=== PATIENT | female | born 1960 | race Caucasian/White ===

== ENCOUNTER 2017-09-08 12:35 | Emergency (ER) | payer OTHER ==
[2017-09-08 13:41] VITALS: BP 149/83
--- NOTE | 2017-09-08 15:46 | UC ---
Knee Pain HPI - HPI Summary HPI Summary: 1. right ear pain 2. right medial calf pain---no injury with distal swelling has been going on for 5-6 days no injury - History of Current Complaint Chief Complaint: UCLowerExtremity Stated Complaint: RIGHT KNEE PAIN Time Seen by Provider: 09/08/17 15:35 Hx Obtained From: Patient ?: No Onset/Duration: Gradual Onset, Lasting Days - 6, Still Present Pain Intensity: 5 Pain Scale Used: 0-10 Numeric Character: Aching Aggravating Factor(s): Nothing Alleviating Factor(s): Nothing Associated Signs And Symptoms: Positive: Swelling Able to Bear Weight: Yes - Allergies/Home Medications Allergies/Adverse Reactions: Allergies Allergy/AdvReac Type Severity Reaction Status Date / Time acetaminophen [From Vicodin] Allergy Vomiting Verified 09/08/17 13:36 aspirin Allergy Vomiting Verified 09/08/17 13:36 bupropion [From Wellbutrin] Allergy Hives Verified 09/08/17 13:36 ciprofloxacin Allergy Hives Verified 09/08/17 13:36 hydrocodone [From Vicodin] Allergy Vomiting Verified 09/08/17 13:36 prochlorperazine Allergy Hives Verified 09/08/17 13:36 [From Compazine] Home Medications: Home Medications Diclofenac Sodium EC TAB* [Voltaren EC TAB*] 50 mg PO BID 09/08/17 [History Confirmed 09/08/17] Diltiazem TAB* [Cardizem 30 MG Tab*] 30 mg PO DAILY 09/08/17 [History Confirmed 09/08/17] Furosemide TAB* [Lasix TAB*] 20 mg PO DAILY 09/08/17 [History Confirmed 09/08/17 ] Loratadine [Claritin 10 MG CAP] 10 mg PO DAILY 09/08/17 [History Confirmed 09/08] Metoprolol Tartrate TAB* [Lopressor TAB*] 50 mg PO DAILY 09/08/17 [History Confirmed 09/08/17] Pantoprazole TAB (NF) [Protonix TAB (NF)] 20 mg PO DAILY 09/08/17 [History Confirmed 09/08/17] Simvastatin TAB(NF) [Zocor 20 MG (NF)] 20 mg PO 1700 09/08/17 [History Confirmed 09/08/17] PMH/Surg Hx/FS Hx/Imm Hx Previously Healthy: No Endocrine History: Dyslipidemia Cardiovascular History: Hypertension GI/ History: Gastroesophageal Reflux - Surgical History Surgical History: Yes Surgery Procedure, Year, and Place: mensicus repair 2017. x 2. right elbow. gallbladder, appy - Family History Known Family History: Positive: None - Social History Occupation: Unemployed Lives: With Family Alcohol Use: Rare Substance Use Type: None Smoking Status (MU): Heavy Every Day Tobacco Smoker Type: Cigarettes Amount Used/How Often: 1/2 ppd Review of Systems Constitutional: Negative Skin: Negative Eyes: Negative ENT: Ear Ache - right ear itching Respiratory: Negative Cardiovascular: Negative Gastrointestinal: Negative Genitourinary: Negative Motor: Negative Neurovascular: Negative Musculoskeletal: Negative, Myalgia - right medial calf pain with distal swelling Neurological: Negative Psychological: Negative Is Patient Immunocompromised?: No All Other Systems Reviewed And Are Negative: Yes Physical Exam Triage Information Reviewed: Yes Appearance: Well-Appearing, Pain Distress, Obese Vital Signs: Initial Vital Signs Temp 98.2 F 09/08/17 13:32 Pulse 78 09/08/17 13:32 Resp 19 09/08/17 13:32 BP 149/83 09/08/17 13:32 Pulse Ox 98 09/08/17 13:32 Vital Signs Reviewed: Yes Eye Exam: Normal Eyes: Positive: Conjunctiva Clear ENT Exam: Normal ENT: Positive: Normal ENT inspection, Hearing grossly normal, Pharynx normal, TMs normal, Uvula midline, Other - right canal red and irratated. Negative: Nasal congestion, Nasal drainage, Trismus, Muffled voice, Hoarse voice, Dental tenderness, Sinus tenderness Dental Exam: Normal Neck exam: Normal Neck: Positive: Supple, Nontender, No Lymphadenopathy Respiratory Exam: Normal Respiratory: Positive: Chest non-tender, Lungs clear, Normal breath sounds, No respiratory distress Cardiovascular Exam: Normal Cardiovascular: Positive: RRR, No Murmur, Pulses Normal, Brisk Capillary Refill Musculoskeletal Exam: Normal Musculoskeletal: Positive: Strength Intact, ROM Intact, Edema @ - medial lower calf and foot Neurological Exam: Normal Neurological: Positive: Alert, Muscle Tone Normal Psychological Exam: Normal Skin Exam: Normal Knee Pain Course/Dx - Course Course Of Treatment: corticosporin ear drops for right ear---d/c and reccommend follow up, by private car to go to, [facility] for further evaluation of right lower leg - Differential Dx/Diagnosis Provider Diagnoses: RLL Swelling, Right otitis externa - Physician Notifications Time Discussed With Above Provider: 15:53 - jocelyn escudero Discharge - Sign-Out/Discharge Documenting (check all that apply): Discharge/Admit/Transfer - Discharge Plan Condition: Stable Disposition: HOME Discharge Disposition Comment: to [facility] for further evaluation Prescriptions: Neomyc/Polym/HC 1% OTIC SUSP* [Cortisporin Otic Susp 1%*] 4 drop RIGHT EAR QID # 1 btl Patient Education Materials: Otitis Externa (ED), How to Use Ear Drops (ED) Referrals: Malika SUN,Jessica Mcnamara [Primary Care Provider] - Additional Instructions: You are being discharged from the urgent care to go to [facility] for evaluation of right medial calf pain - Billing Disposition and Condition Condition: STABLE Disposition: Home
[2017-09-08] MEDS ORDERED: traMADol TAB* 50 MG PO ONE (15:48)
== END 2017-09-08 16:05 | disposition home or self-care (01) ==
LOC: UCCORT 12:35
DX: H60.91 Unspecified otitis externa, right ear (principal); M79.89 Other specified soft tissue disorders; M79.661 Pain in right lower leg; I10 Essential (primary) hypertension; K21.9 Gastro-esophageal reflux disease without esophagitis; E78.5 Hyperlipidemia, unspecified; F17.210 Nicotine dependence, cigarettes, uncomplicated; Z88.6 Allergy status to analgesic agent; Z88.8 Allergy status to other drugs, medicaments and biological substances; Z88.1 Allergy status to other antibiotic agents; Z88.5 Allergy status to narcotic agent; Z79.899 Other long term (current) drug therapy
CPT/HCPCS: 99212; A9270-GY; G0463

== ENCOUNTER 2018-11-02 09:23 | Emergency (ER) | payer OTHER ==
[2018-11-02 09:38] VITALS: BP 124/67
--- NOTE | 2018-11-02 10:15 | UC ---
Lower Extremity/Ankle HPI - HPI Summary HPI Summary: 58-year-old female presents complaining of right foot pain. States that one week ago she accidentally kicked a stool. Has been having pain at the base of her 3rd, 4th, and 5th toes. States pain was improving however she accidentally hit her foot again today and the pain is worse. She has been able to walk and bear weight. Denies any numbness or tingling. - History of Current Complaint Chief Complaint: UCLowerExtremity Stated Complaint: RT FOOT INJURY Time Seen by Provider: 11/02/18 09:37 Hx Obtained From: Patient Pain Intensity: 7 - Allergies/Home Medications Allergies/Adverse Reactions: Allergies Allergy/AdvReac Type Severity Reaction Status Date / Time aspirin Allergy Vomiting Verified 11/02/18 09:32 bupropion [From Wellbutrin] Allergy Hives Verified 11/02/18 09:32 ciprofloxacin Allergy Hives Verified 11/02/18 09:32 hydrocodone [From Vicodin] Allergy Vomiting Verified 11/02/18 09:32 prochlorperazine Allergy Hives Verified 11/02/18 09:32 [From Compazine] Home Medications: Home Medications Albuterol HFA INHALER* [Ventolin HFA Inhaler*] 1 - 2 puff INH Q4H PRN 11/02/18 [ History Confirmed 11/02/18] Atorvastatin* [Lipitor*] 80 mg PO DAILY 11/02/18 [History Confirmed 11/02/18] Ergocalciferol (Vitamin D2) [Vitamin D2] 50,000 unit PO WE 11/02/18 [History Confirmed 11/02/18] Famotidine TAB 40 MG(NF) [Pepcid TAB 40 MG(NF)] 40 mg PO BID 11/02/18 [History Confirmed 11/02/18] Fluticasone-Salmeterol 100-50* [Advair Diskus 100-50*] 1 puff INH BID 11/02/18 [ History Confirmed 11/02/18] Gabapentin CAP(*) [Neurontin 100 mg CAP(*)] 200 mg PO BID 11/02/18 [History Confirmed 11/02/18] Hydrochlorothiazide TAB* [Hydrodiuril TAB*] 25 mg PO DAILY 11/02/18 [History Confirmed 11/02/18] LoraTADine TAB(NF) [Claritin 10 MG TAB(NF)] 10 mg PO DAILY 11/02/18 [History Confirmed 11/02/18] Metoprolol Succinate XL TAB* [Toprol XL TAB*] 100 mg PO DAILY 11/02/18 [History Confirmed 11/02/18] Pantoprazole TAB * [Protonix TAB*] 40 mg PO DAILY 11/02/18 [History Confirmed ] Spironolactone TAB* [Aldactone TAB*] 25 mg PO DAILY 11/02/18 [History Confirmed 11/02/18] Tizanidine HCl [Zanaflex] 4 mg PO TID PRN 11/02/18 [History Confirmed 11/02/18] amLODIPine TAB* [Norvasc 5 mg TAB*] 10 mg PO DAILY 11/02/18 [History Confirmed 11/02/18] oxyCODONE/Acetamin 5/325 MG* [Percocet 5/325 TAB*] 1 - 2 tab PO Q6H PRN MDD 6 [History Confirmed 11/02/18] PMH/Surg Hx/FS Hx/Imm Hx Endocrine History: Dyslipidemia Cardiovascular History: Hypertension Respiratory History: COPD GI/ History: Gastroesophageal Reflux - Surgical History Surgical History: Yes Surgery Procedure, Year, and Place: mensicus repair 2017. x 2. right elbow. gallbladder, appy - Family History Known Family History: Positive: Non-Contributory - Social History Occupation: Disabled Lives: With Family Alcohol Use: Rare Substance Use Type: Marijuana Substance Use Comment - Amount & Last Used: Daily Smoking Status (MU): Former Smoker Type: Cigarettes Amount Used/How Often: 1/2 ppd Length of Time of Smoking/Using Tobacco: 1/2 PPD On and Off for 43 Years Review of Systems All Other Systems Reviewed And Are Negative: Yes Constitutional: Negative: Fever, Chills Skin: Positive: Bruising Respiratory: Positive: Negative Cardiovascular: Positive: Negative Gastrointestinal: Positive: Negative Genitourinary: Positive: Negative Motor: Negative: Weakness Neurovascular: Negative: Decreased Sensation Musculoskeletal: Positive: Other: - See HPI Neurological: Positive: Negative Is Patient Immunocompromised?: No Physical Exam - Summary Physical Exam Summary: GENERAL APPEARANCE: Well developed, well nourished, alert and cooperative, and appears to be in no acute distress. CARDIAC: Normal S1 and S2. No S3, S4 or murmurs. Rhythm is regular. There is no peripheral edema, cyanosis or pallor. Extremities are warm and well perfused. Capillary refill is less than 2 seconds. Peripheral pulses intact. LUNGS: Clear to auscultation without rales, rhonchi, wheezing or diminished breath sounds. ABDOMEN: Positive bowel sounds. Soft, nondistended, nontender. No guarding or rebound. No masses or hepatosplenomegally. MUSKULOSKELETAL: ROM intact to all extremities. No joint erythema or tenderness. Normal muscular development. Normal gait. EXTREMITIES: Tenderness at the base of the 3rd, 4th, and 5th toes of the right foot without gross deformity, ecchymosis, or edema. Circulation and sensation intact. SKIN: Skin normal color, texture and turgor. Triage Information Reviewed: Yes Vital Signs: Initial Vital Signs Temp 98 F 11/02/18 09:28 Pulse 76 11/02/18 09:28 Resp 18 11/02/18 09:28 BP 124/67 11/02/18 09:28 Pulse Ox 98 11/02/18 09:28 Vital Signs Reviewed: Yes Diagnostics - Radiology No standard instances Radiology Interpretation Completed By: ED Physician - No acute fracture or dislocation., Radiologist Summary of Radiographic Findings: Order Information: FOOT RIGHT 3+ VWS. Accession Number: [id number]. CPT: 71198. INDICATION: Right foot injury. TECHNIQUE: 3 views of the right foot were obtained. FINDINGS: There is no soft tissue swelling about the toes. The bone mineralization is within normal limits. No fractures identified. A plantar calcaneal enthesophyte is present. Anatomic alignment is maintained. The joint spaces are preserved with mild osteoarthropathy of the first MTP. IMPRESSION: 1. NO EVIDENCE FOR FRACTURE. 2. MILD FIRST MTP OSTEOARTHROPATHY. Lower Extremity Course/Dx - Course Course Of Treatment: 58-year-old female presents complaining of right foot pain. States that one week ago she accidentally kicked a stool. Has been having pain at the base of her 3rd, 4th, and 5th toes. States pain was improving however she accidentally hit her foot again today and the pain is worse. She has been able to walk and bear weight. Denies any numbness or tingling. Afebrile. Vital signs stable. Patient some tenderness at the base of the third, fourth, and fifth toes of her right foot without gross deformity, ecchymosis, or edema. Circulation and sensation were intact. Remainder of exam was unremarkable. X-ray showed no acute fracture or dislocation. Patient was placed in a postop shoe. Recommending conservative treatment for a right foot contusion. She is to follow-up with her primary care provider in 5-7 days if symptoms are not improving. Anticipatory guidance and warning symptoms are reviewed with the patient. Verbalizes understanding and agrees with plan of care. - Differential Dx/Diagnosis Differential Diagnosis/HQI/PQRI: Contusion, Fracture (Closed), Sprain Provider Diagnosis: Contusion of right foot Discharge - Sign-Out/Discharge Documenting (check all that apply): Patient Departure All imaging exams completed and their final reports reviewed: Yes - Discharge Plan Condition: Stable Disposition: HOME Patient Education Materials: Foot Contusion (ED) Referrals: Jessica Daly PA [Primary Care Provider] - 5 Days Additional Instructions: The x-ray performed in the clinic today showed no evidence of a fracture. I suspect that you have a contusion of the foot. Wear the post-op shoe that was provided in the clinic until you are pain-free. Rest the foot as much as possible. You may continue to walk and bear weight as tolerated. Apply ice to the affected area for 15-20 minutes at least 4 times a day to help with the pain and swelling. Elevate the foot to help reduce swelling. Take acetaminophen (Tylenol) or ibuprofen (Advil, Motrin) according to directions as needed for pain. Follow up with your primary care provider in 5-7 days if symptoms do not improve. Seek immediate medical attention if you have severe pain not managed with pain medication, you are unable to walk or bear any weight, develop numbness or tingling in the foot or toes, or have any worsening of symptoms. - Billing Disposition and Condition Condition: STABLE Disposition: Home
== END 2018-11-02 10:50 | disposition home or self-care (01) ==
LOC: UCCORT 09:23
DX: I10 Essential (primary) hypertension (principal); E78.5 Hyperlipidemia, unspecified; K21.9 Gastro-esophageal reflux disease without esophagitis; J44.9 Chronic obstructive pulmonary disease, unspecified; Z87.891 Personal history of nicotine dependence
CPT/HCPCS: 99212; G0463

== ENCOUNTER 2019-02-17 08:50 | Emergency (ER) | payer OTHER ==
[2019-02-17 09:15] VITALS: BP 128/67
--- NOTE | 2019-02-17 10:22 | UC ---
Lower Extremity/Ankle HPI - HPI Summary HPI Summary: Pt presents c/o right distal foot pain that is worse at night. Pt states that she "stubbed her foot" recently and now she escamilla s pain with weight bearing. - History of Current Complaint Chief Complaint: UCLowerExtremity Stated Complaint: RIGHT FOOT INJURY Time Seen by Provider: 02/17/19 10:14 Hx Obtained From: Patient ?: No Onset/Duration: Sudden Onset, Lasting Days, Still Present Severity Initially: Moderate Severity Currently: Moderate Pain Intensity: 7 Aggravating Factor(s): Standing, Ambulation Alleviating Factor(s): Rest, Elevation Able to Bear Weight: Yes - minimal - Risk Factors Gout Risk Factors: Negative DVT Risk Factors: Recent Trauma - hit foot against hard object - Allergies/Home Medications Allergies/Adverse Reactions: Allergies Allergy/AdvReac Type Severity Reaction Status Date / Time aspirin Allergy Vomiting Verified 02/17/19 09:09 bupropion [From Wellbutrin] Allergy Hives Verified 02/17/19 09:09 ciprofloxacin Allergy Hives Verified 02/17/19 09:09 hydrocodone [From Vicodin] Allergy Vomiting Verified 02/17/19 09:09 prochlorperazine Allergy Hives Verified 02/17/19 09:09 [From Compazine] PMH/Surg Hx/FS Hx/Imm Hx Previously Healthy: Yes - Surgical History Surgical History: Yes Surgery Procedure, Year, and Place: mensicus repair 2017. x 2. right elbow. gallbladder, appy - Family History Known Family History: Positive: None, Non-Contributory - Social History Occupation: Employed Full-time Lives: With Family Alcohol Use: Rare Substance Use Type: Marijuana Substance Use Comment - Amount & Last Used: Daily Smoking Status (MU): Former Smoker Type: Cigarettes Amount Used/How Often: 1/2 ppd Length of Time of Smoking/Using Tobacco: 1/2 PPD On and Off for 43 Years Have You Smoked in the Last Year: No When Did the Patient Quit Smoking/Using Tobacco: 14 months ago - Immunization History Vaccination Up to Date: No Review of Systems All Other Systems Reviewed And Are Negative: Yes Constitutional: Positive: Negative Skin: Positive: Negative Eyes: Positive: Negative ENT: Positive: Negative Respiratory: Positive: Negative Cardiovascular: Positive: Negative Gastrointestinal: Positive: Negative Genitourinary: Positive: Negative Motor: Positive: Negative Neurovascular: Positive: Negative Musculoskeletal: Positive: Arthralgia, Myalgia Neurological: Positive: Negative Psychological: Positive: Negative Is Patient Immunocompromised?: No Physical Exam Triage Information Reviewed: Yes Appearance: Obese Vital Signs: Initial Vital Signs Temp 98.1 F 02/17/19 09:11 Pulse 81 02/17/19 09:11 Resp 17 02/17/19 09:11 BP 128/67 02/17/19 09:11 Pulse Ox 97 02/17/19 09:11 Vital Signs Reviewed: Yes Eye Exam: Normal ENT Exam: Normal ENT: Positive: Hearing grossly normal Dental Exam: Normal Neck exam: Normal Respiratory: Positive: No respiratory distress Musculoskeletal: Positive: Other: - c/o pain distal metatarsals Neurological Exam: Normal Psychological Exam: Normal Skin Exam: Normal Diagnostics - Radiology No standard instances Radiology Interpretation Completed By: Radiologist - Learning Developer: Slava Stinson ([id number]) Medical Geneticist: ADALGISA (NUANCE) Report Date: 2018 10:04:00 Report Status: Final ======= Start of Report Content Patient Name: RAMBO JUAREZ Medical Record#: [id number] Ordering Physician: Matthias Bryant MD Acct.#: [id number] : 1960 Age: 58 Sex : F Location: [facility] Exam Date: 02/17/19940 ADM Status: REG ER Order Information: FOOT RIGHT 3+ VWS Accession Number: [id number] CPT: 11128 INDICATION: Right foot trauma resulting in medial pain. COMPARISON: November 02, 2018 right foot radiograph TECHNIQUE: 3 views of the right foot were obtained. FINDINGS: The soft tissues are unremarkable. The bones are osteopenic. No fracture is identified. A small calcaneal enthesophyte extends along the plantar fascia. Anatomic alignment is maintained. There is moderate osteoarthropathy of the first MTP. IMPRESSION: 1. NO FRACTURE OR TRAUMATIC MALALIGNMENT OF THE RIGHT FOOT. 2. OSTEOPENIA. 3. MODERATE FIRST MTP OSTEOARTHROPATHY. < Electronically signed by Slava Stinson MD in OV> 02/17/19 1001 Dictated By: Slava Stinson MD Dictated Date/Time: 02/17/19957 Transcribed Date/Time: 957 Copy to: CC:[facility]; Jessica Daly RPA-C; Matthias Bryant MD Imaging - [facility] Imaging - [facility] [address] [place] [id number] [address] [address] ph [phone]) ph [phone]) ph ([phone]) End of Report Content Lower Extremity Course/Dx - Differential Dx/Diagnosis Differential Diagnosis/HQI/PQRI: Fracture (Closed), Sprain, Strain, Tendonitis Provider Diagnosis: Right foot pain Discharge ED - Sign-Out/Discharge Documenting (check all that apply): Patient Departure All imaging exams completed and their final reports reviewed: Yes - Discharge Plan Condition: Stable Disposition: HOME Patient Education Materials: Arthralgia (ED), Ice Pack Application (ED), Safe Use of NSAIDs (ED), Metatarsalgia (DC) Referrals: Jessica Daly, PA [Primary Care Provider] - If Needed Bob Rousseau MD [Medical Doctor] - If Needed - Billing Disposition and Condition Condition: STABLE Disposition: Home
== END 2019-02-17 10:44 | disposition home or self-care (01) ==
LOC: UCCORT 08:50
DX: M79.671 Pain in right foot (principal); Z87.891 Personal history of nicotine dependence; Z88.6 Allergy status to analgesic agent; Z88.8 Allergy status to other drugs, medicaments and biological substances; Z88.5 Allergy status to narcotic agent; Z88.1 Allergy status to other antibiotic agents
CPT/HCPCS: 99213; G0463

== ENCOUNTER 2020-10-07 10:36 | Observation (INO) ==
[~2020-10-07 10:36] MED LIST: Buffered Lidocaine 1% SYRIN 1 ml INTRADERM ONE; Lactated Ringers 1000 ml BAG 1,000 ML IV SCH
[2020-10-07] MEDS ORDERED: Chlorhexidine MOUTHWASH 0.12% 15 ML UDC ONE (10:52)
[2020-10-07] MEDS ORDERED: Heparin 5000 UNITS/ML 1 mL VIAL ONE (10:52)
[2020-10-07] MEDS ORDERED: Bupivacaine 0.5% SDV PF 30ML VIAL ONE (10:52)
[2020-10-07] MEDS ORDERED: ceFAZolin 2 GM PREMIX 2 GM/50 ML BAG ONE (10:56)
[2020-10-07] MEDS ORDERED: Ondansetron ODT 4 mg TAB 4 MG TAB ONE (10:56)
[2020-10-07] MEDS ORDERED: Midazolam 2 mg/2 ml VIAL 1 mg/ml 2 ml VIAL (2 mg) ONE (11:01)
[2020-10-07] MEDS ORDERED: fentaNYL 250 mcg/5 ml 50 MCG/ML 5 ml VIAL (250 MCG) ONE (11:01)
[2020-10-07] MEDS ORDERED: Rocuronium 50 mg VIAL 10 mg/ml 5 ml VIAL (50 mg) ONE (11:07)
[2020-10-07 11:39] LABS: Calcium 9.9 mg/dL (8.6-10.3); EGFR African American 55.1 (>60); EGFR Non-African American 45.5 (>60); Potassium 3.1 mmol/L (3.5-5.0)
[2020-10-07] MEDS ORDERED: Phenylephrine 40 mcg/mL 10mL (400mcg) SYRINGE ONE (12:01)
[2020-10-07] MEDS ORDERED: Ketamine HCL 50 mg/ml 10 ml VIAL (500 MG) ONE (12:02)
[2020-10-07] MEDS ORDERED: EPHEDrine (Pressors) 50 MG/ML VIAL ONE (13:09)
[2020-10-07] MEDS ORDERED: ceFAZolin VIAL VIAL ONE ×2 (15:24→17:19)
[2020-10-07] MEDS ORDERED: Propofol 10 MG/ML 20 ML BTL ONE (15:27)
[2020-10-07] MEDS ORDERED: Ondansetron 4 mg VIAL 2 MG/ML 2 ml VIAL ONE ×2 (16:13→18:06)
[2020-10-07] MEDS ORDERED: Sugammadex 500 MG/5 ML 5 ml VIAL IV PUSH ONE (16:13)
[2020-10-07] MEDS ORDERED: DiMENhydriNATE IV 50 mg/ml 1 ml VIAL IV PUSH PRN (16:16)
[2020-10-07] MEDS ORDERED: Naloxone 0.4 mg VIAL 0.4 mg/ml 1 ml VIAL IV PRN (16:16)
[2020-10-07] MEDS ORDERED: Ondansetron 4 mg VIAL 2 MG/ML 2 ml VIAL IV PRN ×2 (16:16→20:43)
[2020-10-07] MEDS ORDERED: diPHENhydraMINE IV 50 MG/ML 1 ml VIAL (BENADRYL) IV PRN (16:16)
[2020-10-07] MEDS ORDERED: Acetaminophen IV 1 GM/100ML 100 ML IV ONE (17:19)
[2020-10-07] MEDS ORDERED: Lidocaine 2% PF 5 ML VIAL ONE (17:19)
[2020-10-07] MEDS ORDERED: HYDROmorphone 1 MG/1 ML SYRINGE ONE ×3 (17:30→20:20)
[2020-10-07] MEDS ORDERED: diPHENhydraMINE IV 50 MG/ML 1 ml VIAL (BENADRYL) ONE (18:06)
[2020-10-07] MEDS: HYDROmorphone 1 MG/1 ML SYRINGE IV PRN ×5 (18:09→20:12)
[2020-10-07] MEDS ORDERED: diPHENhydraMINE 25 mg TAB PO PRN (20:42)
[2020-10-07] MEDS: oxyCODONE/Acetamin 5/325 mg TAB PO PRN (22:22)
[2020-10-08] MEDS ORDERED: Heparin 5000 UNITS/ML 1 mL VIAL SUBCUT SCH (06:00)
[2020-10-08] MEDS: oxyCODONE/Acetamin 5/325 mg TAB PO PRN (07:15)
[2020-10-08 11:20] VITALS: BP 95/56
== END 2020-10-08 12:50 | disposition home or self-care (01) ==
LOC: OR 10:36 → SSU 10:36
PROVIDERS: ADMIT Obstetrics & Gynecology; ATTEND Obstetrics & Gynecology